=== PATIENT | male | born 1955 | race Caucasian/White ===

== ENCOUNTER 2017-01-08 01:58 | Emergency (ER) | payer MEDICAID ==
[~2017-01-08] VITALS: Ht 180.3 cm; Wt 78.9 kg
[2017-01-08 02:00] VITALS: BP 115/66; PULSE 50; RESP 18; TEMP 98.8; O2SAT 98
--- NOTE | 2017-01-08 02:56 | NUR ---
Placed in room 08 . Placed on vehicle monitor technician, blood pressure machine and pulse oximeter. To gown for exam. Side rails up. Report given to CADENCE Woodard.
--- NOTE | 2017-01-08 03:00 | NUR ---
Note yi in EDM - 01/08/17 at 0533 by LATOYA Pt states that he had a mechanical fall when walking on the porch. Pt has a 10 cm laceration on his L forearm and L hand in between his hand. Denies KO. Donnie schneider to monitor. No other injuries or complaints mentioned/noted. No distress noted.
--- NOTE | 2017-01-08 03:00 | NUR ---
Pt states that he had a mechanical fall when walking on the porch. Pt has a 10 cm laceration on his L forearm and 3 cm L hand in between his hand. Denies KO. Will wyatt to monitor. No other injuries or complaints mentioned/noted. No distress noted.
--- NOTE | 2017-01-08 03:00 | NUR ---
ER Dr. Newell at bedside examining patient.
[2017-01-08] MEDS ORDERED: LIDOCAINE 1% 10 MG/ML, 20 ML MDV IJ ONE (03:15)
[2017-01-08] MEDS ORDERED: DIPH-TET-PERTUS Vaccine 0.5 ML VIAL (ADACEL) IM ONE (03:15)
[2017-01-08] MEDS ORDERED: BACITRACIN 1 GM OINT TP ONE (03:15)
[2017-01-08 04:35] VITALS: BP 115/66; PULSE 64; RESP 18; TEMP 98.8; O2SAT 98
--- NOTE | 2017-01-08 04:35 | NUR ---
Patient given written and verbal discharge instructions and verbalizes understanding. ER MD discussed with patient the results and treatment provided. Patient in stable condition. ID arm band removed. Patient educated on pain management and to follow up with PMD. Pain Scale 0/10. Opportunity for questions provided and answered.
== END 2017-01-08 04:28 | disposition home or self-care (01) ==
LOC: SED 01:58
DX: S51.812A Laceration without foreign body of left forearm, initial encounter (principal); S61.412A Laceration without foreign body of left hand, initial encounter; I10 Essential (primary) hypertension; W17.89XA Other fall from one level to another, initial encounter; Y93.89 Activity, other specified; Y99.8 Other external cause status; Y92.89 Other specified places as the place of occurrence of the external cause
CPT/HCPCS: 12005; 90471; 90715; 99283; J2001

== ENCOUNTER 2017-01-11 13:00 | Emergency (ER) | payer MEDICAID ==
[~2017-01-11] VITALS: Ht 180.3 cm; Wt 77.6 kg
[2017-01-11 13:00] VITALS: BP 124/64; PULSE 71; RESP 19; TEMP 98.9; O2SAT 98
[2017-01-11] MEDS ORDERED: VANCOMYCIN HCL 1,000 MG in NS 250 ML IV ONE (14:00)
[2017-01-11] MEDS ORDERED: CEFAZOLIN 1 GM IVPB PREMIX 50 ML IV ONE (14:00)
[2017-01-11] MEDS ORDERED: KETOROLAC TROMETHAMINE 30 MG VIAL IVP ONE (14:00)
[2017-01-11] MEDS ORDERED: ACETAMINOPHEN 500 MG TABLET PO ONE (14:00)
[2017-01-11] MEDS ORDERED: VANCOMYCIN HCL 1000 MG/VIAL IV ONE ×2 (14:17→15:11)
[2017-01-11 14:24] LABS: BASOPHILS % (AUTO) 0.2 % (0.0-2.0); EOSINOPHILS % (AUTO) 0.4 % (0.0-4.0); HEMATOCRIT 36.1 % (36-54); HEMOGLOBIN 12.3 g/dL (14.0-18.0); LYMPHOCYTES # (AUTO) 1.2 K/uL (1.0-5.5); MEAN CORPUSCULAR HEMOGLOBIN 35 pg (27-31); MEAN CORPUSCULAR HGB CONC 34 % (32-36); MEAN CORPUSCULAR VOLUME 103 fL (79.0-98.0); MONOCYTES # (AUTO) 0.6 K/uL (0.0-1.0); MONOCYTES % (AUTO) 7.7 % (1.7-9.3); NEUTROPHILS # (AUTO) 5.5 K/uL (1.8-7.7); NEUTROPHILS % (AUTO) 74.7 % (40.0-70.0); PLATELET COUNT (AUTO) 295 K/uL (130-430); RED CELL DISTRIBUTION WIDTH 13.5 % (9.0-15.0); WHITE BLOOD COUNT (AUTO) 7.3 K/uL (4.8-10.8)
[2017-01-11 14:39] LABS: CREATININE 0.73 mg/dL (0.55-1.30); POTASSIUM 3.7 mmol/L (3.5-5.1)
[2017-01-11 14:48] LABS: ALBUMIN 3.8 g/dL (3.4-4.8); TOTAL BILIRUBIN 0.5 mg/dL (0.0-1.0); TOTAL PROTEIN, SERUM 8.1 g/dL (6.4-8.3)
[2017-01-11 17:18] VITALS: BP 133/71; PULSE 61; RESP 18; TEMP 98.1; O2SAT 99
== END 2017-01-11 17:18 | disposition home or self-care (01) ==
LOC: SED 13:00
DX: L03.114 Cellulitis of left upper limb (principal)
CPT/HCPCS: 36415; 80053; 85025; 87040; 96365; 96366; 96367; 96375; 99285; J0690; J1885; J3370; J7050; J7060

== ENCOUNTER 2017-12-17 20:26 | Emergency (ER) | payer MEDICAID ==
[~2017-12-17] VITALS: Ht 180.3 cm; Wt 80.7 kg
[2017-12-17 20:26] VITALS: BP_SYST 117
--- NOTE | 2017-12-17 21:10 | NUR ---
Placed in room 06 . Placed on anthropology department chair, blood pressure machine and pulse oximeter. To gown for exam. Side rails up. Report given to CADENCE Toribio.
--- NOTE | 2017-12-17 21:10 | NUR ---
Patient to ER via triage with c/o right hand redness and swelling x 2 days, patient reports that he is not sure if he was bit by something or not. Patient noted to have red/swollen hand, patient able to move all extremities without difficulty. Awaiting evaluation by ER MD, will continue to observe and assess.
--- NOTE | 2017-12-17 21:15 | NUR ---
Dr Wilson at bedside to evaluate patient.
[2017-12-17] MEDS ORDERED: SULFAMETHOXAZOLE/TRIMETHOPR DS 1 TABLET PO ONE (21:30)
[2017-12-17] MEDS ORDERED: cefTRIAXone 1 GM VIAL IM ONE (21:30)
[2017-12-17 22:00] VITALS: BP_SYST 110
--- NOTE | 2017-12-17 22:00 | NUR ---
Patient given written and verbal discharge instructions and verbalizes understanding. ER MD discussed with patient the results and treatment provided. Patient in stable condition. ID arm band removed. Rx of Keflex, Bactrim DS, Ibuprofen given. Patient educated on pain management and to follow up with PMD. Pain Scale 2. Opportunity for questions provided and answered. Patient left ER ambulating with slow, steady gait in no acute distress. No adverse reaction noted to medication.
== END 2017-12-17 22:00 | disposition home or self-care (01) ==
LOC: SED 20:26
DX: L03.113 Cellulitis of right upper limb (principal); I11.0 Hypertensive heart disease with heart failure; I50.9 Heart failure, unspecified; F17.200 Nicotine dependence, unspecified, uncomplicated; Z95.1 Presence of aortocoronary bypass graft
CPT/HCPCS: 96372; 99283; J0696

== ENCOUNTER 2018-03-01 14:32 | Emergency (ER) | payer MEDICAID ==
[~2018-03-01] VITALS: Ht 180.3 cm; Wt 81.6 kg
[2018-03-01 14:44] VITALS: BP_SYST 136
[2018-03-01] MEDS ORDERED: KETOROLAC TROMETHAMINE 30 MG VIAL IVP ONE (15:00)
[2018-03-01] MEDS ORDERED: CEFAZOLIN 1 GM IVPB PREMIX 50 ML IV ONE (15:00)
[2018-03-01 15:08] LABS: BASOPHILS % (AUTO) 0.4 % (0.0-2.0); EOSINOPHILS # (AUTO) 0.1 K/uL (0.0-0.4); EOSINOPHILS % (AUTO) 1.2 % (0.0-4.0); HEMATOCRIT 37.1 % (36-54); HEMOGLOBIN 12.7 g/dL (14.0-18.0); LYMPHOCYTES # (AUTO) 1.6 K/uL (1.0-5.5); LYMPHOCYTES % (AUTO) 29.1 % (20.5-51.5); MEAN CORPUSCULAR HEMOGLOBIN 35 pg (27-31); MEAN CORPUSCULAR HGB CONC 34 % (32-36); MEAN CORPUSCULAR VOLUME 103 fL (79.0-98.0); MONOCYTES # (AUTO) 0.4 K/uL (0.0-1.0); MONOCYTES % (AUTO) 8.1 % (1.7-9.3); NEUTROPHILS # (AUTO) 3.2 K/uL (1.8-7.7); NEUTROPHILS % (AUTO) 61.2 % (40.0-70.0); PLATELET COUNT (AUTO) 379 K/uL (130-430); RED CELL DISTRIBUTION WIDTH 13.1 % (9.0-15.0); WHITE BLOOD COUNT (AUTO) 5.3 K/uL (4.8-10.8)
[2018-03-01 15:29] LABS: CALCIUM 9.2 mg/dL (8.4-11.0); CREATININE 0.82 mg/dL (0.55-1.30); POTASSIUM 3.7 mmol/L (3.5-5.1)
[2018-03-01 15:34] LABS: ALBUMIN 3.8 g/dL (3.4-4.8); TOTAL BILIRUBIN 0.3 mg/dL (0.0-1.0)
[2018-03-01 16:07] VITALS: BP_SYST 130
== END 2018-03-01 16:05 | disposition home or self-care (01) ==
LOC: SED 14:32
DX: L03.115 Cellulitis of right lower limb (principal); I11.0 Hypertensive heart disease with heart failure; I50.9 Heart failure, unspecified; F17.210 Nicotine dependence, cigarettes, uncomplicated; Z71.6 Tobacco abuse counseling
CPT/HCPCS: 36415; 73610; 80053; 83605; 85025; 87040; 96365; 96375; 99285; J0690; J1885

== ENCOUNTER 2019-01-03 15:47 | Emergency (ER) | payer MEDICAID ==
[~2019-01-03] VITALS: Ht 180.3 cm; Wt 79.4 kg
[2019-01-03 15:47] VITALS: BP_SYST 156
[2019-01-03] MEDS ORDERED: KETOROLAC TROMETHAMINE 30 MG VIAL IVP ONE (17:00)
[2019-01-03] MEDS ORDERED: CEFAZOLIN 1 GM IVPB PREMIX 50 ML IV ONE (17:00)
[2019-01-03 17:42] LABS: BASOPHILS % (AUTO) 0.2 % (0.0-2.0); EOSINOPHILS % (AUTO) 0.1 % (0.0-4.0); HEMATOCRIT 39.1 % (36-54); LYMPHOCYTES # (AUTO) 1.4 K/uL (1.0-5.5); LYMPHOCYTES % (AUTO) 16.9 % (20.5-51.5); MEAN CORPUSCULAR HEMOGLOBIN 37 pg (27-31); MEAN CORPUSCULAR HGB CONC 33 % (32-36); MEAN CORPUSCULAR VOLUME 112 fL (79.0-98.0); MONOCYTES # (AUTO) 0.5 K/uL (0.0-1.0); NEUTROPHILS # (AUTO) 6.3 K/uL (1.8-7.7); NEUTROPHILS % (AUTO) 76.8 % (40.0-70.0); PLATELET COUNT (AUTO) 300 K/uL (130-430); RED BLOOD CELL COUNT(AUTO) 3.48 MIL/uL (4.2-6.2); RED CELL DISTRIBUTION WIDTH 14.1 % (9.0-15.0); WHITE BLOOD COUNT (AUTO) 8.2 K/uL (4.8-10.8)
[2019-01-03 18:02] LABS: CALCIUM 9.1 mg/dL (8.4-11.0); CREATININE 0.71 mg/dL (0.55-1.30); POTASSIUM 3.8 mmol/L (3.5-5.1)
[2019-01-03 18:07] LABS: ALBUMIN 3.9 g/dL (3.4-4.8); TOTAL BILIRUBIN 0.5 mg/dL (0.0-1.0)
[2019-01-03] MEDS ORDERED: HYDROcodone/ACETAMIN 5-325 MG TAB (NORCO/ VICODIN) PO ONE (18:45)
[2019-01-03 19:26] VITALS: BP_SYST 156
== END 2019-01-03 19:26 | disposition home or self-care (01) ==
LOC: SED 15:47
DX: M25.532 Pain in left wrist (principal); I11.0 Hypertensive heart disease with heart failure; I50.9 Heart failure, unspecified; X50.0XXA Overexertion from strenuous movement or load, initial encounter; Y93.89 Activity, other specified; Y92.89 Other specified places as the place of occurrence of the external cause; Y99.8 Other external cause status
CPT/HCPCS: 36415; 73100; 80053; 83605; 85025; 87040; 96365; 96366; 96375; 99284; J0690; J1885

== ENCOUNTER 2019-04-23 11:26 | Emergency (ER) | payer MEDICAID ==
[~2019-04-23] VITALS: Ht 180.3 cm; Wt 79.4 kg
[2019-04-23 11:34] VITALS: BP_SYST 150
[2019-04-23 12:08] VITALS: BP_SYST 150
== END 2019-04-23 12:09 | disposition home or self-care (01) ==
LOC: SED 11:26
DX: H60.92 Unspecified otitis externa, left ear (principal); F17.210 Nicotine dependence, cigarettes, uncomplicated; I11.0 Hypertensive heart disease with heart failure; I50.9 Heart failure, unspecified; Z71.6 Tobacco abuse counseling
CPT/HCPCS: 99283

== ENCOUNTER 2019-05-24 11:54 | Emergency (ER) | payer MEDICAID ==
[~2019-05-24] VITALS: Ht 180.3 cm; Wt 79.4 kg
[2019-05-24 11:55] VITALS: BP_SYST 146
--- NOTE | 2019-05-24 11:55 | NUR ---
BROUGHT BACK TO BED #5 AND TRIAGED. REPORT GIVEN TO JA
--- NOTE | 2019-05-24 12:20 | NUR ---
PT STATES LEFT EAR PAIN FOR LAST FEW DAYS, PT STATES HE WENT TO URGENT CARE AND RECEIVED DROPS BUT THEY STOPPED WORKING.
[2019-05-24 13:00] VITALS: BP_SYST 146
--- NOTE | 2019-05-24 13:00 | NUR ---
DR GIBBS AT BEDSIDE FOR EVALAUTION
--- NOTE | 2019-05-24 13:17 | NUR ---
Patient given written and verbal discharge instructions and verbalizes understanding. ER MD discussed with patient the results and treatment provided. Patient in stable condition. ID arm band removed. Rx of CIPRODEX AND SPECTAZOLE given. Patient educated on pain management and to follow up with PMD. Pain Scale 0/10. Opportunity for questions provided and answered. Medication side effect fact sheet provided.
== END 2019-05-24 13:17 | disposition home or self-care (01) ==
LOC: SED 11:54
DX: H60.92 Unspecified otitis externa, left ear (principal); B35.4 Tinea corporis; I11.0 Hypertensive heart disease with heart failure; I50.9 Heart failure, unspecified
CPT/HCPCS: 99283

== ENCOUNTER 2019-10-08 10:49 | Emergency (ER) | payer MEDICAID ==
[~2019-10-08] VITALS: Ht 180.3 cm; Wt 74.8 kg
[2019-10-08 10:57] VITALS: BP_SYST 143
[2019-10-08 11:35] VITALS: BP_SYST 143
== END 2019-10-08 11:35 | disposition home or self-care (01) ==
LOC: SED 10:49
DX: I11.0 Hypertensive heart disease with heart failure (principal); I50.9 Heart failure, unspecified; Z76.0 Encounter for issue of repeat prescription
CPT/HCPCS: 99283

== ENCOUNTER 2020-03-06 12:34 | Emergency (ER) | payer MEDICAID ==
[~2020-03-06] VITALS: Ht 180.3 cm; Wt 74.8 kg
--- NOTE | 2020-03-06 13:30 | NUR ---
PATIENT TO ER #5
[2020-03-06 13:32] VITALS: BP_SYST 128
[2020-03-06] MEDS ORDERED: LISI20TA PO (13:32)
--- NOTE | 2020-03-06 13:40 | NUR ---
Patient presented to ER C/O LEFT FOOT PAIN . Patient A&Ox4, ambulatory to ER, skin pink & hot, afebrile, pain 06/06, denies N/V/D.
--- NOTE | 2020-03-06 13:45 | NUR ---
ER Dr. Mas at bedside examining patient.
[2020-03-06 14:15] LABS: BASOPHILS % (AUTO) 0.3 % (0.0-2.0); EOSINOPHILS # (AUTO) 0.1 K/uL (0.0-0.4); EOSINOPHILS % (AUTO) 1.2 % (0.0-4.0); HEMATOCRIT 33.5 % (36-54); HEMOGLOBIN 11.4 g/dL (14.0-18.0); LYMPHOCYTES # (AUTO) 1.5 K/uL (1.0-5.5); MEAN CORPUSCULAR HEMOGLOBIN 43 pg (27-31); MEAN CORPUSCULAR HGB CONC 34 % (32-36); MEAN CORPUSCULAR VOLUME 126 fL (79.0-98.0); MONOCYTES # (AUTO) 0.3 K/uL (0.0-1.0); MONOCYTES % (AUTO) 6.4 % (1.7-9.3); NEUTROPHILS % (AUTO) 62.1 % (40.0-70.0); PLATELET COUNT (AUTO) 316 K/uL (130-430); RED BLOOD CELL COUNT(AUTO) 2.66 MIL/uL (4.2-6.2); RED CELL DISTRIBUTION WIDTH 14.4 % (9.0-15.0); WHITE BLOOD COUNT (AUTO) 4.9 K/uL (4.8-10.8)
[2020-03-06 14:28] LABS: CALCIUM 8.4 mg/dL (8.4-11.0); CREATININE 0.74 mg/dL (0.55-1.30); POTASSIUM 4.2 mmol/L (3.5-5.1)
[2020-03-06 14:33] LABS: ALBUMIN 3.9 g/dL (3.4-4.8); TOTAL BILIRUBIN 0.5 mg/dL (0.0-1.0); URIC ACID 4.1 mg/dL (2.4-7.0)
--- NOTE | 2020-03-06 14:58 | NUR ---
REPORT TO VIKAS VILA
[2020-03-06] MEDS: CEPHALEXIN 500 MG CAPSULE PO ONE (15:12)
[2020-03-06] MEDS: SULFAMETHOXAZOLE/TRIMETHOPR DS 1 TABLET PO ONE (15:12)
[2020-03-06] MEDS: IBUPROFEN 800 MG TABLET PO ONE (15:14)
[2020-03-06 15:37] VITALS: BP_SYST 128
--- NOTE | 2020-03-06 15:37 | NUR ---
Patient given written and verbal discharge instructions and verbalizes understanding. ER MD discussed with patient the results and treatment provided. Patient in stable condition. ID arm band removed. Rx of Bactrim, Motrin, and Keflex given. Patient educated on pain management and to follow up with PMD. Pain Scale 8/10. 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 Opportunity for questions provided and answered. Medication side effect fact sheet provided.
== END 2020-03-06 15:37 | disposition home or self-care (01) ==
LOC: SED 12:34
DX: L03.116 Cellulitis of left lower limb (principal); H61.22 Impacted cerumen, left ear; I11.0 Hypertensive heart disease with heart failure; I50.9 Heart failure, unspecified
CPT/HCPCS: 36415; 80053; 84550-TC; 85025; 99284

== ENCOUNTER 2020-08-30 14:09 | Emergency (ER) | payer MEDICAID ==
[~2020-08-30] VITALS: Ht 180.3 cm; Wt 74.8 kg
[~2020-08-30 14:09] MED LIST: LISI20TA PO
[2020-08-30 14:18] VITALS: BP_SYST 130
[2020-08-30 14:45] VITALS: BP_SYST 132
== END 2020-08-30 14:30 | disposition home or self-care (01) ==
LOC: SED 14:09
DX: H61.23 Impacted cerumen, bilateral (principal); I11.0 Hypertensive heart disease with heart failure; I50.9 Heart failure, unspecified
CPT/HCPCS: 99282

== ENCOUNTER 2020-09-12 18:04 | Emergency (ER) | payer MEDICAID ==
[~2020-09-12] VITALS: Ht 180.3 cm; Wt 74.8 kg
[2020-09-12 18:22] VITALS: BP_SYST 147
[2020-09-12 19:05] VITALS: BP_SYST 147
== END 2020-09-12 18:46 | disposition home or self-care (01) ==
LOC: SED 18:04
DX: S13.9XXA Sprain of joints and ligaments of unspecified parts of neck, initial encounter (principal); R60.0 Localized edema; I11.0 Hypertensive heart disease with heart failure; I50.9 Heart failure, unspecified; X58.XXXA Exposure to other specified factors, initial encounter; Y93.89 Activity, other specified; Y92.89 Other specified places as the place of occurrence of the external cause; Y99.8 Other external cause status
CPT/HCPCS: 99282

== ENCOUNTER 2021-01-24 16:10 | Emergency (ER) | payer OTHER, MEDICAID ==
[~2021-01-24] VITALS: Ht 180.3 cm; Wt 68.9 kg
[~2021-01-24 16:10] MED LIST changes: +CYAN100010 PO; +HYDR25TA4 PO; +NOR10 PO
[2021-01-24 16:41] VITALS: BP_SYST 145
--- NOTE | 2021-01-24 16:44 | NUR ---
AMBULATED TO BED 3
--- NOTE | 2021-01-24 16:48 | NUR ---
PT AAO AND AMBULATORY BIB FAMILY MEMBER FOR LOW HMG SENT BY DR. HOLLINGSWORTH FOR FOLLOWUP. PT DENIES ANY CURRENT COMPLAINT BUT WANTED TO FOLLOW UP AND VERIFY ABNORMAL LABS.
--- NOTE | 2021-01-24 16:50 | NUR ---
DR. MARES AT [facility] TO EVALUATE PT STATUS.
--- NOTE | 2021-01-24 17:09 | NUR ---
LABS BEING DRAWN AT BEDSIDE.
[2021-01-24 17:37] LABS: MEAN CORPUSCULAR HEMOGLOBIN 34 pg (27-31); MEAN CORPUSCULAR HGB CONC 33 % (32-36); MEAN CORPUSCULAR VOLUME 102 fL (79.0-98.0); RED BLOOD CELL COUNT(AUTO) 2.07 MIL/uL (4.2-6.2); RED CELL DISTRIBUTION WIDTH 25.2 % (9.0-15.0); WHITE BLOOD COUNT (AUTO) 2.6 K/uL (4.8-10.8)
[2021-01-24 17:39] LABS: PROTHROMBIN TIME 10.5 SECS (9.5-12.5)
[2021-01-24 17:56] LABS: HEMATOCRIT 21.2 % (36-54)
[2021-01-24 17:59] LABS: PLATELET COUNT (AUTO) 54 K/uL (130-430)
[2021-01-24 18:04] LABS: ALBUMIN 3.8 g/dL (3.4-4.8); CREATININE 1.1 mg/dL (0.55-1.30); POTASSIUM 4.4 mmol/L (3.5-5.1); TOTAL BILIRUBIN 0.6 mg/dL (0.0-1.0)
--- NOTE | 2021-01-24 18:30 | NUR ---
MADE NUMEROUS ATTEMPTS TO CALL [facility] TO NO AVAIL. PT WAS SENT HERE IN PRIVATE AUTO WITH FAMILY. PT IS AAO AND AMBULATORY AND IS A GREAT HISTORIAN. PT UNDERSTOOD HE CAME HERE FOR A BLOOD DRAW AND PENDING THOSE RESULTS WOULD DICTATE ADMISSION OR NOT. PT TO BE DISCHARGED AND PT PREFERS TO GO BACK TO FACILITY WITH FAMILY. [facility] CALLED AND AGREED TO TRANSPORT PT BACK TO FACILITY. DR. MARES AWARE. 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
--- NOTE | 2021-01-24 18:35 | NUR ---
Patient given written and verbal discharge instructions and verbalizes understanding. DR. SUZAN MALONE MD discussed with patient the results and treatment provided. Patient in stable condition. ID arm band removed. Patient educated on pain management and to follow up with PMD. Pain Scale 0/10. Opportunity for questions provided and answered. 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 Dinner provided.
[2021-01-24 19:01] VITALS: BP_SYST 113
[2021-01-24 20:01] LABS: BAND % (MANUAL) 2 % (0-6)
[2021-01-24 20:02] LABS: BASOPHILS % (MANUAL) 0 % (0-2); EOSINOPHILS % (MANUAL) 2 % (0-7); LYMPHOCYTES % (MANUAL) 33 % (20-46); MONOCYTES % (MANUAL) 15 % (0-11)
== END 2021-01-24 19:01 | disposition home or self-care (01) ==
LOC: SED 16:10
DX: D64.9 Anemia, unspecified (principal); Z86.2 Personal history of diseases of the blood and blood-forming organs and certain disorders involving the immune mechanism
CPT/HCPCS: 36415; 80053; 85007; 85027; 85610-TC; 85730-TC; 99283

== ENCOUNTER 2021-01-28 15:18 | Emergency (ER) | payer OTHER, MEDICAID, SELFPAY ==
[~2021-01-28] VITALS: Ht 165.1 cm; Wt 68.0 kg
[2021-01-28 15:43] VITALS: BP_SYST 145
[2021-01-28 16:52] LABS: BASOPHILS % (AUTO) 0.1 % (0.0-2.0); HEMATOCRIT 25.6 % (36-54); HEMOGLOBIN 8.2 g/dL (14.0-18.0); LYMPHOCYTES # (AUTO) 0.4 K/uL (1.0-5.5); LYMPHOCYTES % (AUTO) 2.4 % (20.5-51.5); MEAN CORPUSCULAR HEMOGLOBIN 33 pg (27-31); MEAN CORPUSCULAR HGB CONC 32 % (32-36); MEAN CORPUSCULAR VOLUME 102 fL (79.0-98.0); MONOCYTES # (AUTO) 2.1 K/uL (0.0-1.0); MONOCYTES % (AUTO) 13.5 % (1.7-9.3); NEUTROPHILS # (AUTO) 12.9 K/uL (1.8-7.7); PLATELET COUNT (AUTO) 305 K/uL (130-430); RED BLOOD CELL COUNT(AUTO) 2.51 MIL/uL (4.2-6.2); RED CELL DISTRIBUTION WIDTH 23.3 % (9.0-15.0); WHITE BLOOD COUNT (AUTO) 15.3 K/uL (4.8-10.8)
[2021-01-28] MEDS ORDERED: BISA10SU61 RC (17:11)
[2021-01-28] MEDS ORDERED: ACET325T53 PO (17:11)
[2021-01-28] MEDS ORDERED: VIT5OINT3 TP (17:11)
[2021-01-28] MEDS ORDERED: MOM PO (17:11)
[2021-01-28 17:16] LABS: INR 1.1 (0.80-1.20); PROTHROMBIN TIME 11.6 SECS (9.5-12.5)
[2021-01-28 17:17] LABS: CALCIUM 8.5 mg/dL (8.4-11.0)
[2021-01-28 17:18] LABS: CREATININE 1.39 mg/dL (0.55-1.30)
[2021-01-28 17:26] LABS: ALBUMIN 3.3 g/dL (3.4-4.8); TOTAL BILIRUBIN 1.1 mg/dL (0.0-1.0)
[2021-01-28] MEDS ORDERED: NS 500 ML IV ONE (17:45)
[2021-01-28 18:14] LABS: BILIRUBIN,URINE NEGATIVE (NEGATIVE); BLOOD, URINE NEGATIVE (NEGATIVE); CLARITY/URINE CLEAR (CLEAR); COLOR,URINE YELLOW (YELLOW); GLUCOSE,URINE NEGATIVE (NEGATIVE); KETONES,URINE NEGATIVE (NEGATIVE); LEUKOCYTE ESTERASE ,URINE NEGATIVE (NEGATIVE); NITRITE, URINE NEGATIVE (NEGATIVE); PROTEIN URINE 1+ (NEGATIVE)
[2021-01-28 18:28] LABS: BACTERIA,URINE MANY /HPF (None Seen); RBC,URINE 0-3 /HPF (0-3); WBC,URINE 0-3 /HPF (0-3)
[2021-01-28 18:29] LABS: FINE GRANULAR CASTS,URINE 0-10 /LPF (None Seen); HYALINE CASTS, URINE 0-10 /LPF (None Seen); MUCUS,URINE 1+ /LPF (None Seen)
[2021-01-28] MEDS ORDERED: DOXY100C PO (18:52)
[2021-01-28] MEDS ORDERED: CYANOCOBALAMIN 1000 MCG/ML VIAL IM ONE (19:00)
[2021-01-28] MEDS ORDERED: cefTRIAXone 1 GM in LIDOCAINE 1%, 20 ML MDV 2.1 ML IM ONE (19:00)
[2021-01-28] MEDS ORDERED: cefTRIAXone 1 GM VIAL ONE (19:12)
[2021-01-28] MEDS ORDERED: LIDOCAINE 1%, 20 ML MDV 20 ML ONE (19:13)
[2021-01-28] MEDS ORDERED: KCL 20 mEq in D5/0.45NS 1000mL 1,000 ML IV SCH (19:45)
[2021-01-28 22:19] VITALS: BP_SYST 124
== END 2021-01-28 22:19 | disposition home or self-care (01) ==
LOC: SED 15:18 → UNDOADMIN 19:41 → STU 19:41 → SED 22:19
DX: N39.0 Urinary tract infection, site not specified (principal); I11.0 Hypertensive heart disease with heart failure; I50.9 Heart failure, unspecified; F12.90 Cannabis use, unspecified, uncomplicated; Z79.899 Other long term (current) drug therapy; Z20.822 Contact with and (suspected) exposure to COVID-19
CPT/HCPCS: 36415; 71045; 80053; 81000; 83605; 84484; 85025; 85610; 85730; 87040; 87081; 87086; 87426; 93005; 96372; 99285; J0696; J2001; J3420; J7040

== ENCOUNTER 2021-10-19 12:02 | Emergency (ER) | payer OTHER, MEDICAID ==
[~2021-10-19] VITALS: Ht 180.3 cm; Wt 87.5 kg
[~2021-10-19 12:02] MED LIST changes: +ACET325T53 PO; +BISA10SU61 RC; +DOXY100C PO; +MOM PO; +VIT5OINT3 TP
--- NOTE | 2021-10-19 12:15 | NUR ---
Dr Aragon to bedside to evaluate patient.
[2021-10-19 12:17] VITALS: BP_SYST 164
--- NOTE | 2021-10-19 12:30 | NUR ---
First contact with patient; noted to be in room 5. No report received. Patient reports left hand swelling x 48 hrs of unknown origin. States he is unable to move his fingers much due to swelling and discomfort. PMH HTN. Will continue to monitor.
[2021-10-19 12:39] LABS: BASOPHILS % (AUTO) 0.2 % (0.0-2.0); EOSINOPHILS % (AUTO) 0.1 % (0.0-4.0); HEMATOCRIT 41.3 % (36-54); HEMOGLOBIN 14.1 g/dL (14.0-18.0); LYMPHOCYTES # (AUTO) 1.4 K/uL (1.0-5.5); MEAN CORPUSCULAR HEMOGLOBIN 31 pg (27-31); MEAN CORPUSCULAR HGB CONC 34 % (32-36); MEAN CORPUSCULAR VOLUME 91 fL (79.0-98.0); MONOCYTES # (AUTO) 1.2 K/uL (0.0-1.0); MONOCYTES % (AUTO) 11.5 % (1.7-9.3); NEUTROPHILS # (AUTO) 7.5 K/uL (1.8-7.7); NEUTROPHILS % (AUTO) 74.2 % (40.0-70.0); PLATELET COUNT (AUTO) 247 K/uL (130-430); RED BLOOD CELL COUNT(AUTO) 4.54 MIL/uL (4.2-6.2); WHITE BLOOD COUNT (AUTO) 10.2 K/uL (4.8-10.8)
--- NOTE | 2021-10-19 12:50 | NUR ---
Xray done at bedside
[2021-10-19 12:58] LABS: CALCIUM 8.6 mg/dL (8.4-11.0); CREATININE 0.97 mg/dL (0.55-1.30); POTASSIUM 3.8 mmol/L (3.5-5.1)
[2021-10-19 13:03] LABS: ALBUMIN 4.2 g/dL (3.4-4.8); TOTAL BILIRUBIN 0.7 mg/dL (0.0-1.0)
[2021-10-19 13:26] LABS: C-REACTIVE PROTEIN QUANT 12.4 mg/dL (0-0.5)
[2021-10-19] MEDS ORDERED: CLIN300C12 PO (13:51)
[2021-10-19] MEDS ORDERED: IBUP-1971 PO (13:51)
[2021-10-19] MEDS ORDERED: CLINDAMYCIN HCL 150 MG CAPSULE PO ONE (14:00)
[2021-10-19] MEDS ORDERED: IBUPROFEN 800 MG TABLET PO ONE (14:00)
--- NOTE | 2021-10-19 15:01 | NUR ---
Patient given written and verbal discharge instructions and verbalizes understanding. ER MD discussed with patient the results and treatment provided. Patient in stable condition. ID arm band removed. Rx of Clindamycin and Motrin given. Patient educated on pain management and to follow up with PMD. Pain scale 8/10; Motrin provided before discharge. Opportunity for questions provided and answered. Medication side effect fact sheet provided.
[2021-10-19 15:03] VITALS: BP_SYST 164
== END 2021-10-19 15:02 | disposition home or self-care (01) ==
LOC: SED 12:02
DX: L03.114 Cellulitis of left upper limb (principal)
CPT/HCPCS: 36415; 80053; 83605; 85025; 86140; 99284

== ENCOUNTER 2022-01-20 10:21 | Emergency (ER) | payer OTHER, MEDICAID ==
[~2022-01-20] VITALS: Ht 180.3 cm; Wt 94.3 kg
[~2022-01-20 10:21] MED LIST changes: +CLIN-142 PO; +IBUP-1971 PO
[2022-01-20 10:40] VITALS: BP_SYST 124
[2022-01-20 11:46] LABS: BASOPHILS % (AUTO) 0.5 % (0.0-2.0); EOSINOPHILS % (AUTO) 0.6 % (0.0-4.0); HEMATOCRIT 39.8 % (36-54); HEMOGLOBIN 13.3 g/dL (14.0-18.0); LYMPHOCYTES # (AUTO) 1.4 K/uL (1.0-5.5); LYMPHOCYTES % (AUTO) 16.1 % (20.5-51.5); MEAN CORPUSCULAR HEMOGLOBIN 31 pg (27-31); MEAN CORPUSCULAR HGB CONC 34 % (32-36); MEAN CORPUSCULAR VOLUME 91 fL (79.0-98.0); MONOCYTES # (AUTO) 0.7 K/uL (0.0-1.0); MONOCYTES % (AUTO) 7.8 % (1.7-9.3); NEUTROPHILS # (AUTO) 6.3 K/uL (1.8-7.7); PLATELET COUNT (AUTO) 282 K/uL (130-430); RED BLOOD CELL COUNT(AUTO) 4.37 MIL/uL (4.2-6.2); RED CELL DISTRIBUTION WIDTH 13.9 % (9.0-15.0); WHITE BLOOD COUNT (AUTO) 8.4 K/uL (4.8-10.8)
[2022-01-20 11:56] LABS: CALCIUM 8.4 mg/dL (8.4-11.0); CREATININE 0.86 mg/dL (0.55-1.30); POTASSIUM 3.5 mmol/L (3.5-5.1)
[2022-01-20] MEDS ORDERED: IBUPROFEN 400 MG TABLET PO ONE (12:00)
[2022-01-20] MEDS ORDERED: cephALEXin 500 MG CAPSULE PO ONE (12:00)
[2022-01-20 12:02] LABS: TOTAL BILIRUBIN 0.3 mg/dL (0.0-1.0)
[2022-01-20] MEDS ORDERED: IBUP-1969 PO (13:04)
[2022-01-20] MEDS ORDERED: CEPH-548 PO (13:04)
[2022-01-20 13:35] VITALS: BP_SYST 140
== END 2022-01-20 13:35 | disposition home or self-care (01) ==
LOC: SED 10:21
DX: L03.113 Cellulitis of right upper limb (principal); I11.0 Hypertensive heart disease with heart failure; I50.9 Heart failure, unspecified; Z79.899 Other long term (current) drug therapy
CPT/HCPCS: 36415; 80053; 83605; 85025; 87040; 99284

== ENCOUNTER 2023-07-04 11:26 | Emergency (ER) | payer MEDICAID, OTHER ==
[~2023-07-04] VITALS: Ht 180.3 cm; Wt 88.9 kg
[~2023-07-04 11:26] MED LIST changes: +CEPH-548 PO; +IBUP-1969 PO
[2023-07-04 11:38] VITALS: BP_SYST 172; PULSE 62; RESP 18; TEMP 98.3; O2SAT 98
[2023-07-04] MEDS ORDERED: NAPR-688 PO ×2 (12:35→12:57)
[2023-07-04] MEDS ORDERED: TRAM50TA2 PO ×2 (12:35→12:57)
== END 2023-07-04 12:59 | disposition home or self-care (01) ==
LOC: SED 11:26
DX: M19.032 Primary osteoarthritis, left wrist (principal); I11.0 Hypertensive heart disease with heart failure; I50.9 Heart failure, unspecified; Z79.899 Other long term (current) drug therapy
CPT/HCPCS: 99283

== ENCOUNTER 2024-05-17 13:24 | Emergency (ER) | payer OTHER ==
[~2024-05-17] VITALS: Ht 180.3 cm; Wt 86.2 kg
[~2024-05-17 13:24] MED LIST changes: +NAPR-688 PO; +TRAM50TA2 PO
[2024-05-17 13:49] VITALS: BP_SYST 152; PULSE 75; RESP 22; TEMP 98.3; O2SAT 98
[2024-05-17] MEDS: KETOROLAC TROMETHAMINE 30 MG VIAL IM ONE (16:00)
[2024-05-17] MEDS ORDERED: IBUP-1969 PO (16:40)
[2024-05-17] MEDS ORDERED: DICL20GE TP (16:40)
[2024-05-17 16:50] VITALS: BP_SYST 152; PULSE 75; RESP 22; TEMP 98.3; O2SAT 98
== END 2024-05-17 16:49 | disposition home or self-care (01) ==
LOC: SED 13:24
DX: S86.812A Strain of other muscle(s) and tendon(s) at lower leg level, left leg, initial encounter (principal); I11.0 Hypertensive heart disease with heart failure; I50.9 Heart failure, unspecified; Z79.899 Other long term (current) drug therapy; Z79.2 Long term (current) use of antibiotics; W22.09XA Striking against other stationary object, initial encounter; Y93.01 Activity, walking, marching and hiking; Y92.89 Other specified places as the place of occurrence of the external cause; Y99.8 Other external cause status
CPT/HCPCS: 99285; 93971; 73564; 96372; J1885